=== PATIENT | female | born 1960 | race Caucasian/White ===

== ENCOUNTER 2018-01-18 17:48 | Emergency (ER) | payer MEDICAID ==
[~2018-01-18] VITALS: Ht 167.6 cm; Wt 95.0 kg
[2018-01-18 17:57] VITALS: BP 170/85
[2018-01-18] MEDS ORDERED: ibuprofen tablet 400 MG TABLET PO ONE (19:05)
== END 2018-01-18 19:39 | disposition home or self-care (01) ==
LOC: ER 17:49
DX: S93.492A Sprain of other ligament of left ankle, initial encounter (principal); Z88.8 Allergy status to other drugs, medicaments and biological substances; Z91.012 Allergy to eggs; W01.0XXA Fall on same level from slipping, tripping and stumbling without subsequent striking against object, initial encounter; Y93.89 Activity, other specified; Y92.89 Other specified places as the place of occurrence of the external cause; Y99.8 Other external cause status
CPT/HCPCS: 29515; 73610; 99284

== ENCOUNTER 2020-02-20 21:00 | Inpatient (IN) | payer MEDICAID ==
[~2020-02-20] VITALS: Ht 167.6 cm; Wt 85.5 kg
[2020-02-20 21:42] LABS: BASOPHILS # (AUTO) 0.1 X10'3 (0-0.2); EOSINOPHILS # (AUTO) 0.1 X10'3 (0-0.9); HEMATOCRIT 52.2 % (35.0-45.0); HEMOGLOBIN 17.6 g/dl (12.0-16.0); MONOCYTES # (AUTO) 0.5 X10'3 (0-0.9); NEUTROPHILS # (AUTO) 6.1 X10'3 (1.8-7.7); WHITE BLOOD COUNT 8.5 X10'3 (4.5-11.0)
[2020-02-20 21:43] LABS: EOSINOPHILS % (AUTO) 1.2 % (0-6); LYMPHOCYTES # (AUTO) 1.7 X10'3 (1.1-4.8); LYMPHOCYTES % (AUTO) 20.5 % (21-51); MEAN CORPUSCULAR HEMOGLOBIN 30.2 PG (27.0-31.0); MEAN CORPUSCULAR HGB CONC 33.8 g/dL (33.0-36.5); MEAN CORPUSCULAR VOLUME 89.2 FL (78-98); MEAN PLATELET VOLUME 11.8 FL (7.4-10.4); MONOCYTES % (AUTO) 5.8 % (2-12); NEUTROPHILS % (AUTO) 71.5 % (42-75); PLATELET COUNT 159 X10'3 (140-440); RED BLOOD COUNT 5.85 X10'6 (4.20-5.60)
[2020-02-20 21:56] LABS: PARTIAL THROMBOPLASTIN TIME 26 SECONDS (22-32)
[2020-02-20 21:57] LABS: ALANINE AMINOTRANSFERASE 7 U/L (12-78); ALBUMIN 3.8 G/DL (3.4-5.0); ALBUMIN/GLOBULIN RATIO 1.2 (1.1-1.5); ALKALINE PHOSPHATASE 118 IU/L (46-116); ANION GAP 8 (8-16); ASPARTATE AMINO TRANSFERASE 15 U/L (10-37); BILIRUBIN,TOTAL 0.7 MG/DL (0.1-1.0); BLOOD UREA NITROGEN 10 MG/DL (7-18); BUN/CREATININE RATIO 8.9 (6.6-38.0); CALCIUM 9.4 MG/DL (8.5-10.1); CHLORIDE 101 MMOL/L (99-107); CREATININE 1.12 MG/DL (0.40-0.90); GLUCOSE 431 MG/DL (70-104); POTASSIUM 3.9 MMOL/L (3.5-5.1); SODIUM 136 MMOL/L (135-145); TOTAL CARBON DIOXIDE 27.5 MMOL/L (24-32); TOTAL PROTEIN 7.1 G/DL (6.4-8.2); eGFR 50 ML/MIN
[2020-02-20 22:01] LABS: TROPONIN I < 0.04 NG/ML (0.0-0.05)
[2020-02-20] MEDS ORDERED: NO HOME MEDS (22:32)
[2020-02-20] MEDS ORDERED: normal saline 1000ml 1,000 ML IV ONE (22:45)
[2020-02-20] MEDS ORDERED: normal saline 1000ML IV soln IVB ONE (22:45)
[2020-02-20] MEDS ORDERED: acetaminophen 325mg tablet PO PRN (22:50)
[2020-02-20] MEDS ORDERED: potassium Cl 20 mEq SR tablet PO PRN (22:50)
[2020-02-20] MEDS ORDERED: magnesium Cl slow-release 64mg tablet PO PRN (22:50)
[2020-02-20] MEDS ORDERED: ondansetron/PF 4mg/2ml inj IV PRN (22:50)
[2020-02-20] MEDS ORDERED: HYDROcodone/acetaminophen 5mg/325mg tablet PO PRN (22:50)
[2020-02-20] MEDS ORDERED: aspirin 81mg tab.chew PO ONE (22:50)
[2020-02-20] MEDS ORDERED: magnesium 2GM in 50ml NS 50 ML IV PRN (22:50)
[2020-02-20] MEDS ORDERED: magnesium 4gm in 100ml NS 100 ML IV PRN (22:50)
[2020-02-20] MEDS ORDERED: magnesium hydroxide 30ml (MOM) UD suspension PO PRN (22:50)
[2020-02-20] MEDS ORDERED: potassium CL 10mEq/100ml bag 100 ML IV PRN ×2 (22:50)
[2020-02-20] MEDS ORDERED: mag hydrox/Alum hydrox/simeth 30ml oral suspension PO PRN (22:50)
[2020-02-20] MEDS ORDERED: insulin regular, human 10 units/0.1 ml syringe SQ ONE (23:00)
[2020-02-20] MEDS ORDERED: insulin regular, human U-100 3ml vial - multi-dose SQ ONE (23:10)
[2020-02-20] MEDS ORDERED: hydrALAZINE 20mg/ml inj. IV PRN (23:40)
[2020-02-20] MEDS ORDERED: MESSAGE TO PHARMACY PO ONE (23:45)
[2020-02-20] MEDS ORDERED: dextrose 50%-water 50ml dispensing syringe IV PRN ×2 (23:45)
[2020-02-20] MEDS ORDERED: glucagon, human recombinant 1mg kit SUBCUT PRN (23:45)
[2020-02-20] MEDS ORDERED: dextrose ORAL solution 15 GM/59 ML bottle PO PRN ×2 (23:45)
[2020-02-21 01:30] VITALS: BP 154/72
--- NOTE | 2020-02-21 01:30 | NUR ---
Patient in room ORTHO 4011. I have received report from Cap RN and had the opportunity to ask questions and assume patient care.
--- NOTE | 2020-02-21 01:40 | NUR ---
Pt arrived to floor, Assessment, Neuro ck, NIH done
[2020-02-21] MEDS: nicotine 21mg patch - 24 hr TD SCH ×2 (02:40→09:55)
[2020-02-21 06:00] VITALS: BP 195/75
[2020-02-21 06:01] LABS: BASOPHILS # (AUTO) 0.1 X10'3 (0-0.2); BASOPHILS % (AUTO) 0.8 % (0-1); EOSINOPHILS # (AUTO) 0.2 X10'3 (0-0.9); EOSINOPHILS % (AUTO) 2.1 % (0-6); HEMATOCRIT 47.8 % (35.0-45.0); HEMOGLOBIN 16.2 g/dl (12.0-16.0); LYMPHOCYTES # (AUTO) 2.2 X10'3 (1.1-4.8); MEAN CORPUSCULAR HEMOGLOBIN 29.8 PG (27.0-31.0); MEAN CORPUSCULAR VOLUME 87.8 FL (78-98); MEAN PLATELET VOLUME 11.5 FL (7.4-10.4); MONOCYTES # (AUTO) 0.5 X10'3 (0-0.9); MONOCYTES % (AUTO) 6.1 % (2-12); NEUTROPHILS # (AUTO) 4.9 X10'3 (1.8-7.7); PLATELET COUNT 141 X10'3 (140-440); RED BLOOD COUNT 5.44 X10'6 (4.20-5.60); RED CELL DISTRIBUTION WIDTH 13.1 % (11.5-14.5); WHITE BLOOD COUNT 7.8 X10'3 (4.5-11.0)
[2020-02-21 06:16] LABS: ALANINE AMINOTRANSFERASE 9 U/L (12-78); ALBUMIN 3.2 G/DL (3.4-5.0); ALBUMIN/GLOBULIN RATIO 1.2 (1.1-1.5); ALKALINE PHOSPHATASE 96 IU/L (46-116); ANION GAP 6 (8-16); ASPARTATE AMINO TRANSFERASE 17 U/L (10-37); BILIRUBIN,TOTAL 0.7 MG/DL (0.1-1.0); BLOOD UREA NITROGEN 6 MG/DL (7-18); BUN/CREATININE RATIO 7.2 (6.6-38.0); CALCIUM 8.1 MG/DL (8.5-10.1); CHLORIDE 107 MMOL/L (99-107); CHOL/HDL RATIO 5.1 (0.00-4.99); CHOLESTEROL 152 MG/DL (0-200); CREATININE 0.83 MG/DL (0.40-0.90); GLUCOSE 175 MG/DL (70-104); HDL CHOLESTEROL 30 MG/DL (35-60); LDL CHOLESTEROL 109 MG/DL (50-100); MAGNESIUM 1.7 MG/DL (1.5-2.4); POTASSIUM 3.2 MMOL/L (3.5-5.1); SODIUM 140 MMOL/L (135-145); TOTAL CARBON DIOXIDE 27.4 MMOL/L (24-32); TOTAL PROTEIN 5.9 G/DL (6.4-8.2); TRIGLYCERIDES 98 MG/DL (20-135); eGFR 71 ML/MIN
--- NOTE | 2020-02-21 06:41 | NUR ---
Problems reprioritized. Patient report given, questions answered & plan of care reviewed with Mignon FERGUSON.
[2020-02-21 06:57] LABS: LARGE PLATELETS FEW
[2020-02-21 07:32] LABS: PLATELET ESTIMATE NORMAL
[2020-02-21] MEDS: K and/or MAG REPLACEMENT MC SCH ×2 (08:00→19:29)
[2020-02-21] MEDS ORDERED: aspirin 81mg tablet.DR PO SCH (08:25)
[2020-02-21] MEDS: famotidine 20mg tablet PO SCH ×2 (08:25→19:16)
[2020-02-21] MEDS ORDERED: atorvastatin 20mg tablet PO SCH (08:25)
--- NOTE | 2020-02-21 09:48 | NUR ---
PAGER ID: [phone] MESSAGE: [phone] Kasandra Betancur Do you want the MRI/MRA and CTA? [phone]
[2020-02-21 10:00] VITALS: BP 189/73
[2020-02-21] MEDS: insulin Lispro (HumaLOG) vial - multi-dose SQ SCH ×3 (10:00→19:19)
[2020-02-21] MEDS: docusate sod 100mg capsule PO SCH ×2 (10:03→19:16)
[2020-02-21] MEDS ORDERED: iohexol 350MG/ML 100ml bottle IV ONE (11:17)
--- NOTE | 2020-02-21 11:23 | NUR ---
ECHO IN WITH PATIENT.
[2020-02-21] MEDS: potassium Cl 20 mEq SR tablet PO PRN ×3 (11:50→19:15)
--- NOTE | 2020-02-21 13:59 | NUR ---
PAGER ID: [phone] MESSAGE: [phone] Kasandra [address] regarding the MRA is wanting you to call [phone]
--- NOTE | 2020-02-21 15:19 | NUR ---
DM consult. A1c 10; h/o drug. DM is part of PMH however is new onset per H&P as "undiagnosed type 2 DM." Attempted visit, however was getting a test done. Will attempt again to provide written DM education handout with verbal review. Addendum: 02/21/20 at [address] Amended: Links added.
[2020-02-21] MEDS ORDERED: clopidogrel 75mg tablet PO ONE (16:10)
[2020-02-21] MEDS ORDERED: nicotine 14mg patch - 24hr TD SCH (16:30)
--- NOTE | 2020-02-21 17:47 | NUR ---
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 Still awaiting room number and transfer time.
[2020-02-21 18:00] VITALS: BP 166/66
--- NOTE | 2020-02-21 18:15 | NUR ---
Patient in room ORTHO 4011. I have received report from Patria FERGUSON & Angela FERGUSON and had the opportunity to ask questions and assume patient care.
--- NOTE | 2020-02-21 18:25 | NUR ---
Problems reprioritized. Patient report given, questions answered & plan of care reviewed with Umu FERGUSON.
--- NOTE | 2020-02-21 20:30 | NUR ---
Called Kulwant @ [facility] to give report.
[2020-02-21] MEDS ORDERED: insulin glargine (Lantus) pen - multi-dose SQ SCH (21:00)
--- NOTE | 2020-02-21 21:30 | NUR ---
Updated Kulwant at [facility], still no ETA, informed blood Glucose dropped to 60, gave Dex 4 with yogurt rechecked BG=82
[2020-02-21 22:00] VITALS: BP 146/71
--- NOTE | 2020-02-21 23:30 | NUR ---
Called [facility] to try to receive ETA for transport, Luc said he would call back in 40mins to 1 hour w/ ETA
--- NOTE | 2020-02-22 01:20 | NUR ---
[facility] called & gave ETA 10 mins. Called [facility] & spoke w/ Son to inform pt ETA. Called Kul[facility] @ [facility] & informed [facility] en route to [facility]
--- NOTE | 2020-02-22 01:25 | NUR ---
Pt transported by [facility] to bed [address] [facility]
[2020-02-22] MEDS ORDERED: clopidogrel 75mg tablet PO SCH (08:00)
== END 2020-02-22 01:26 | disposition short-term general hospital (02) | DRG 45 ==
LOC: ER 21:01 → UNDOADMOB 22:48 → ED HOLD 22:48 → UNDOADMOB 23:20 → ED HOLD 23:20 → ORTHO 4S 02-21 01:36 → INTOOBSV 02-21 08:45 → ORTHO 4S 02-21 08:45 → OBSVTOIN 02-21 08:45 → ED HOLD 02-21 08:45
PROVIDERS: ADMIT Family Medicine; ATTEND Family Medicine
PROC: B3251ZZ Computerized Tomography (CT Scan) of Bilateral Common Carotid Arteries using Low Osmolar Contrast (ICD-10-PCS; principal; 2020-02-21)
PROC: B32G1ZZ Computerized Tomography (CT Scan) of Bilateral Vertebral Arteries using Low Osmolar Contrast (ICD-10-PCS; 2020-02-21)
PROC: B3281ZZ Computerized Tomography (CT Scan) of Bilateral Internal Carotid Arteries using Low Osmolar Contrast (ICD-10-PCS; 2020-02-21)
DX: I63.412 Cerebral infarction due to embolism of left middle cerebral artery (principal); E11.65 Type 2 diabetes mellitus with hyperglycemia; E78.5 Hyperlipidemia, unspecified; F17.210 Nicotine dependence, cigarettes, uncomplicated; E87.6 Hypokalemia; I10 Essential (primary) hypertension; Z90.710 Acquired absence of both cervix and uterus; Z88.8 Allergy status to other drugs, medicaments and biological substances; Z91.012 Allergy to eggs; Z71.6 Tobacco abuse counseling
CPT/HCPCS: 36415; 70450; 70496; 70498; 70544; 70551; 71045; 80053; 80061; 82948; 83036; 83735; 84484; 85025; 85610; 85730; 87081; 87635; 92508; 92616; 93005; 93306; 93880; 93971; 97110; 97116; 97161; 97530; 99285; G0378; J1815; J7030; Q9967

== ENCOUNTER 2022-10-01 11:23 | Emergency (ER) | payer MEDICAID ==
[~2022-10-01] VITALS: Ht 167.6 cm; Wt 78.0 kg
[~2022-10-01 11:23] MED LIST: NO HOME MEDS
[2022-10-01 11:51] LABS: BASOPHILS # (AUTO) 0.1 X10'3 (0-0.2); BASOPHILS % (AUTO) 0.7 % (0-1); EOSINOPHILS # (AUTO) 0.1 X10'3 (0-0.9); EOSINOPHILS % (AUTO) 1.4 % (0-6); HEMATOCRIT 48.3 % (35.0-45.0); HEMOGLOBIN 16.4 g/dl (12.0-16.0); LYMPHOCYTES # (AUTO) 1.7 X10'3 (1.1-4.8); LYMPHOCYTES % (AUTO) 18.3 % (21-51); MEAN CORPUSCULAR HEMOGLOBIN 30.5 PG (27.0-31.0); MEAN CORPUSCULAR VOLUME 89.7 FL (78-98); MEAN PLATELET VOLUME 10.2 FL (7.4-10.4); MONOCYTES # (AUTO) 0.5 X10'3 (0-0.9); MONOCYTES % (AUTO) 5.1 % (2-12); NEUTROPHILS # (AUTO) 6.9 X10'3 (1.8-7.7); NEUTROPHILS % (AUTO) 74.5 % (42-75); PLATELET COUNT 202 X10'3 (140-440); RED BLOOD COUNT 5.38 X10'6 (4.20-5.60); RED CELL DISTRIBUTION WIDTH 13.6 % (11.5-14.5); WHITE BLOOD COUNT 9.3 X10'3 (4.5-11.0)
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
[2022-10-01 12:06] LABS: ALANINE AMINOTRANSFERASE 10 U/L (12-78); ALBUMIN 3.9 G/DL (3.4-5.0); ALBUMIN/GLOBULIN RATIO 1.3 (1.1-1.5); ALKALINE PHOSPHATASE 86 IU/L (46-116); ANION GAP 7 (8-16); ASPARTATE AMINO TRANSFERASE 20 U/L (10-37); BILIRUBIN,TOTAL 0.8 MG/DL (0.1-1.0); BLOOD UREA NITROGEN 20 MG/DL (7-18); CALCIUM 9.2 MG/DL (8.5-10.1); CHLORIDE 107 MMOL/L (99-107); CREATININE 0.87 MG/DL (0.40-0.90); GLUCOSE 142 MG/DL (70-104); POTASSIUM 4.4 MMOL/L (3.5-5.1); SODIUM 142 MMOL/L (135-145); TOTAL CARBON DIOXIDE 27.6 MMOL/L (24-32); TOTAL PROTEIN 6.9 G/DL (6.4-8.2); eGFR 66 ML/MIN
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
[2022-10-01 12:53] LABS: APTT 27 SECONDS (22-32)
[2022-10-01] MEDS ORDERED: iohexol 350MG/ML 100ml bottle IV ONE (15:46)
--- NOTE | 2022-10-01 16:29 | NUR ---
REQUEST IMAGES BE PUSHED TO [facility]
--- NOTE | 2022-10-01 16:29 | NUR ---
A new connect request was successfully created for: RASHID STONE : 1960 ConnectID: [id number] REASON: Follow Up ACUITY: Acuity Level 2 SUBMITTED: 10/01/2022 16:29 PST
[2022-10-01] MEDS ORDERED: aspirin 81mg tab.chew PO ONE (17:00)
[2022-10-01] MEDS ORDERED: clopidogrel 300mg tablet PO ONE (17:00)
[2022-10-01 21:00] VITALS: BP 162/60
== END 2022-10-01 22:53 ==
LOC: ER 11:23
DX: I63.9 Cerebral infarction, unspecified (principal); R47.81 Slurred speech; I10 Essential (primary) hypertension; Z88.8 Allergy status to other drugs, medicaments and biological substances; Z91.012 Allergy to eggs; Z90.710 Acquired absence of both cervix and uterus
CPT/HCPCS: 36415; 70450; 70496; 70498; 70551; 71045; 80053; 82948; 85025; 85610; 85730; 93005; 99285; J3490; Q9967